=== PATIENT | male | born 1960 ===

== ENCOUNTER 2020-05-08 09:17 | Emergency (ER) | payer OTHER ==
[~2020-05-08] VITALS: Ht 172.7 cm; Wt 77.1 kg
[2020-05-08] MEDS ORDERED: SIMVASTATIN5 MG (09:35)
[2020-05-08] MEDS ORDERED: DIOVAN320 MG (09:35)
[2020-05-08] MEDS ORDERED: MEDROLPACK PO (15:07)
== END 2020-05-08 16:35 | disposition home or self-care (01) ==
LOC: ER 09:17
DX: U07.1 COVID-19 (principal); J12.89 Other viral pneumonia